=== PATIENT | male | born 1955 | race Caucasian/White ===

== ENCOUNTER 2025-01-17 10:40 | Outpatient (CLI) | payer MEDICARE, BC ==
[~2025-01-17 10:40] MED LIST: NO HOME MEDS
--- NOTE | 2025-01-17 13:30 | RADIOLOGY REPORT ---
Exam: US ULTRASOUND PELVIS W/ORWO DPLX Clinical History: ELEVATED PROSTATE SPECIFIC ANTIGEN [PSA] Comparison: None Technique: Targeted sonographic evaluation of the soft tissues of the pelvis was obtained utilizing grayscale and color Doppler imaging. Findings/Impression: Prostate gland measures 4.6 x 4.0 x 3.8 cm.
== END 2025-01-17 23:59 | disposition home or self-care (01) ==
LOC: RAD 10:40
PROVIDERS: ATTEND Nurse Practitioner Family
DX: R97.20 Elevated prostate specific antigen [PSA] (principal)
CPT/HCPCS: 76857